=== PATIENT | female | born 1965 | race Hispanic/Latino ===

== ENCOUNTER 2018-11-14 12:51 | Emergency (ER) | payer BC, OTHER ==
[~2018-11-14] VITALS: Ht 154.9 cm; Wt 57.2 kg
[2018-11-14] MEDS ORDERED: KETOROLAC TROMETHAMINE 30 MG/ML VIAL IV ONE (13:36)
[2018-11-14] MEDS ORDERED: SODIUM CHLORIDE 0.9% 1000ML 1,000 ML IV ONE (13:45)
[2018-11-14 13:47] LABS: BILIRUBIN,URINE NEGATIVE (NEGATIVE); CLARITY,URINE SL CLOUDY (CLEAR); COLOR,URINE YELLOW (YELLOW); KETONES,URINE NEGATIVE (NEGATIVE); LEUKOCYTE ESTERASE ,URINE NEGATIVE (NEGATIVE); NITRITE,URINE NEGATIVE (NEGATIVE); PREGNANCY TEST, URINE NEGATIVE (NEGATIVE); PROTEIN,URINE DIPSTICK NEGATIVE (NEGATIVE); URINE UROBILINOGEN 0.2 mg/dL (0.2 - 1)
[2018-11-14 14:04] LABS: BACTERIA,URINE MODERATE /HPF; EPITHELIAL CELLS,URINE FEW /LPF; RBC,URINE 0-5 /HPF (0-5)
[2018-11-14 14:24] LABS: BASOPHILS % 0.3 % (0.0-1.0); EOSINOPHILS % 0.3 % (0.0-6.0); HEMATOCRIT 33.1 % (34.2-44.1); HEMOGLOBIN 10.2 g/dL (12.0-16.0); MEAN CORPUSCULAR HEMOGLOBIN 25.1 pg (28-32); MEAN CORPUSCULAR HGB CONC 30.8 g/dL (31-35); MEAN CORPUSCULAR VOLUME 81.5 fL (81-99); MONOCYTES # (AUTO) 0.3 (0.2-0.8); MONOCYTES % 5.3 % (4.4-11.3); NEUTROPHILS # (AUTO) 4.5 (2.1-6.9); NEUTROPHILS % 76.9 % (38.7-80.0); PLATELET COUNT 270 x10e3/uL (140-360); RED BLOOD COUNT 4.06 x10e6/uL (3.6-5.1); RED CELL DISTRIBUTION WIDTH 14.4 % (11.7-14.4)
[2018-11-14 14:40] LABS: ALANINE AMINOTRANSFERASE 11 IU/L (0-55); ALBUMIN 3.5 g/dL (3.5-5.0); ALKALINE PHOSPHATASE 102 IU/L (40-150); ANION GAP 11.4 mmol/L (8-16); BLOOD UREA NITROGEN 13 mg/dL (7-26); BUN/CREATININE RATIO 19 (6-25); CALCIUM 9.4 mg/dL (8.4-10.2); CARBON DIOXIDE 25 mmol/L (22-29); CHLORIDE 102 mmol/L (98-107); CREATININE, SERUM 0.67 mg/dL (0.57-1.11); EST GLOMERULAR FILTRATION RATE > 60 ML/MIN (60-); GLUCOSE 93 mg/dL (74-118); POTASSIUM 3.4 mmol/L (3.5-5.1); SODIUM 135 mmol/L (136-145)
--- NOTE | 2018-11-14 15:45 | Diagnostic Imaging Report ---
CT of the abdomen and pelvis, without contrast, 11/14/2018. History: Left flank pain. Comparison: None available. Technique: Multidetector CT scanning of the abdomen and pelvis was performed from the level of the lung bases to the inferior pubic rami without intravenous or oral contrast. Coronal and sagittal multiplanar reformations were obtained. RADIATION DOSE: Total DLP: 212 mGy*cm Dose modulation, iterative reconstruction, and/or weight based adjustment of the mA/kV was utilized to reduce the radiation dose to as low as reasonably achievable. Discussion: Examination is limited without contrast. Lung bases: No visualized abnormalities. Abdomen: The liver, gallbladder, biliary tree, spleen, pancreas, adrenal glands, and kidneys are unremarkable. There is no evidence of nephrolithiasis or hydronephrosis. The abdominal aorta is within normal limits. Postoperative changes are present involving the stomach and small bowel. There is no bowel dilatation. Diverticuli are scattered throughout the colon without evidence of adjacent inflammation. There is no evidence of adenopathy or free fluid. Pelvis: The bladder, uterus, adnexa are unremarkable. There is no evidence of free fluid or adenopathy. Bones and soft tissues: Degenerative changes are present throughout the lumbar spine without evidence of lytic or sclerotic lesion. IMPRESSION: No evidence of nephrolithiasis or hydronephrosis. Postoperative changes involving the stomach and proximal small bowel. Colonic diverticulosis without evidence of diverticulitis. Otherwise unremarkable noncontrast exam. Signed by: Preet Fulton on 11/14/2018 3:41 PM
== END 2018-11-14 16:18 | disposition home or self-care (01) ==
LOC: ER 12:51
DX: K52.29 Other allergic and dietetic gastroenteritis and colitis (principal); Z98.84 Bariatric surgery status
CPT/HCPCS: 36415; 74176; 80053; 81001; 81025; 85025; 87086; 99284; J1885; J7030